=== PATIENT | female | born 1935 | race Caucasian/White ===

== ENCOUNTER 2017-05-14 11:14 | Inpatient (IN) | payer MEDICARE, OTHER ==
[~2017-05-14] VITALS: Ht 157.5 cm; Wt 54.4 kg
[~2017-05-14 11:14] MED LIST: ALPR0.5T6 PO; ASCO60LO PO; BIMA2.5D EACHEYE; GLUC1TAB71 PO; LEVOTHYROXINE; MONT10TA9 PO; MULT-245 PO; MV,1TABL3 PO; OMEG300C PO; PYRI100T PO; SELE200T10 PO; SULF1TAB24 PO; THEO400T2 PO; TRIA1CAP3 PO; VITA15DR PO; VITA1TAB39 PO
[2017-05-14] MEDS ORDERED: 0.9 % SODIUM CHLORIDE 10 ML DISP.SYRIN. IV ONE (12:00)
[2017-05-14] MEDS ORDERED: IPRATRPIUM/ALBUTEROL 0.5/2.5MG 3 ML NEBU. NEB ONE (12:20)
[2017-05-14] MEDS ORDERED: methylPREDNISolone SOD SUCC PF 125 MG/2 ML VIAL. IV ONE (12:20)
[2017-05-14 12:21] LABS: BASO # 0.1 x10^3/uL (0.0-0.2); BASO % 1 % (0-3); EOS # 0.1 x10^3/uL (0.0-0.7); EOS % 1 % (0-3); HEMATOCRIT 39.1 % (36.0-47.0); HEMOGLOBIN 13.1 g/dL (12.0-15.5); LYMPH % 7 % (24-48); MEAN CORPUSCULAR HEMOGLOBIN 30 pg (25-35); MEAN CORPUSCULAR HGB CONC 34 g/dL (31-37); MEAN CORPUSCULAR VOLUME 89 fL (79-100); MONO # 2.1 x10^3/uL (0.0-1.1); MONO % 15 % (0-9); NEUT # 10.8 x10^3uL (1.8-7.7); NEUT % 77 % (31-73); PLATELET COUNT 260 x10^3/uL (140-400); RED BLOOD COUNT 4.41 x10^6/uL (3.50-5.40); RED CELL DISTRIBUTION WIDTH 14.1 % (11.5-14.5)
--- NOTE | 2017-05-14 12:28 | RAD ---
CHEST PA LATERAL History: Shortness of breath, cough Comparison: July 19, 2005 Findings: 2 views of the chest are submitted. There is emphysema. There is hazy infiltrate at the right lung base probably in the right middle lobe and anterior right upper lobe. There may be minimal infiltrate at the left lung base. There is S-shaped scoliosis of the thoracolumbar spine. There is likely hiatal hernia. Heart size is similar. There are again small granulomas of the mid to superior right hemithorax. There is no significant dependent pleural fluid. Impression: 1. There is infiltrate at the right lung base, also questionably minimally of the left lung base for which radiographic follow-up after treatment advised. There is emphysema. Electronically signed by: Shaan Regalado MD (05/14/2017 12:24 PM) [id number]
--- NOTE | 2017-05-14 12:58 | PHYS DOC ---
Past History Past Medical History: Anxiety, Hypertension, Hypothyroid Past Surgical History: Cancer Surgery, Knee Replacement, Other Alcohol Use: None Drug Use: None Adult General Chief Complaint Chief Complaint: COUGH HPI HPI 81-year-old male patient with history of surgically treated lung cancer several years ago and previous history of smoking complaining of productive cough with clear sputum for the last 5 days with episodes of shortness of breath during cough. Patient complaining of fever up to 101 and generalized weakness. Patient states she has had dark yellow sputum since last night without hemoptysis. She complaining of nasal congestion and sore throat without vomiting, diarrhea, urinary symptoms, sick contact. Review of Systems Review of Systems Constitutional: Reports fever and chills] Eyes: Denies change in visual acuity, redness, or eye pain [] HENT: Reports nasal congestion or sore throat Respiratory: Reports cough and shortness of breath Cardiovascular: No additional information not addressed in HPI [] GI: Denies abdominal pain, nausea, vomiting, bloody stools or diarrhea [] : Denies dysuria or hematuria [] Musculoskeletal: Denies back pain or joint pain [] Integument: Denies rash or skin lesions [] Neurologic: Denies headache, focal weakness or sensory changes [] Endocrine: Denies polyuria or polydipsia [] All other systems were reviewed and found to be within normal limits, except as documented in this note. Current Medications Current Medications Current Medications Medications (Trade) Dose Ordered Sig/Marya Start Time Stop Time Status Last Admin Dose Admin Albuterol/ Ipratropium (Duoneb) 3 ml 1X ONCE 05/14/17 12:20 05/14/17 12:21 DC Levofloxacin/ Dextrose 150 ml @ 150 mls/hr 1X ONCE 05/14/17 12:45 05/14/17 13:44 Methylprednisolone Sodium Succinate (SOLU-Medrol 125MG VIAL) 125 mg 1X ONCE 05/14/17 12:20 05/14/17 12:21 DC 05/14/17 12:06 125 MG Sodium Chloride (Normal Saline Flush) 10 ml 1X ONCE 05/14/17 12:00 05/14/17 12:01 DC Vancomycin HCl 1.5 gm/Sodium Chloride 500 ml @ 250 mls/hr 1X ONCE 05/14/17 13:00 05/14/17 14:59 Allergies Allergies Allergies Coded Allergies Type Severity Reaction Last Updated Verified NSAIDS (Non-Steroidal Anti-Inflamma Allergy Severe 07/06/14 Yes Penicillins Allergy Severe 07/06/14 Yes cephalexin Allergy Severe 07/06/14 Yes duloxetine Allergy Severe 07/06/14 Yes sulindac Allergy Severe 07/06/14 Yes tramadol Allergy Severe 07/06/14 Yes acetaminophen Allergy Intermediate 07/06/14 Yes aspirin Allergy Intermediate 07/06/14 Yes ibuprofen Allergy Intermediate 07/06/14 Yes fentanyl Adverse Reaction Mild intoxication symptoms 07/06/14 Yes lidocaine Adverse Reaction Mild intoxication symptoms 07/06/14 Yes Uncoded Allergies Type Severity Reaction Last Updated Verified scorpion venom Allergy Severe anaphylaxis 07/06/14 Physical Exam Physical Exam Constitutional: Well developed, thin patient , mild distress, non-toxic appearance. [] HENT: Normocephalic, atraumatic, bilateral external ears normal, oropharynx moist, no oral exudates, nose normal. [] Eyes: PERRLA, EOMI, conjunctiva normal, no discharge. [] Neck: Normal range of motion, no tenderness, supple, no stridor. [] Cardiovascular:Heart rate regular rhythm, no murmur [] Lungs & Thorax: Decrease of air movement, rhonchi, rales of right lung[] Abdomen: Bowel sounds normal, soft, no tenderness, no masses, no pulsatile masses. [] Skin: Warm, dry, no erythema, no rash. [] Back: No tenderness, no CVA tenderness. [] Extremities: No tenderness, no cyanosis, no clubbing, ROM intact, no edema. [] Neurologic: Alert and oriented X 3, normal motor function, normal sensory function, no focal deficits noted. [] Psychologic: Affect normal, judgement normal, mood normal. [] Current Patient Data Vital Signs Vital Signs Date Time Temp Pulse Resp B/P (MAP) Pulse Ox O2 Delivery O2 Flow Rate FiO2 05/14/17 11:47 97.8 100 18 93 Room Air Lab Results Laboratory Tests Test 05/14/17 11:38 White Blood Count 14.0 x10^3/uL (4.0-11.0) H Red Blood Count 4.41 x10^6/uL (3.50-5.40) Hemoglobin 13.1 g/dL (12.0-15.5) Hematocrit 39.1 % (36.0-47.0) Mean Corpuscular Volume 89 fL (79-100) Mean Corpuscular Hemoglobin 30 pg (25-35) Mean Corpuscular Hemoglobin Concent 34 g/dL (31-37) Red Cell Distribution Width 14.1 % (11.5-14.5) Platelet Count 260 x10^3/uL (140-400) Neutrophils (%) (Auto) 77 % (31-73) H Lymphocytes (%) (Auto) 7 % (24-48) L Monocytes (%) (Auto) 15 % (0-9) H Eosinophils (%) (Auto) 1 % (0-3) Basophils (%) (Auto) 1 % (0-3) Neutrophils # (Auto) 10.8 x10^3uL (1.8-7.7) H Lymphocytes # (Auto) 1.0 x10^3/uL (1.0-4.8) Monocytes # (Auto) 2.1 x10^3/uL (0.0-1.1) H Eosinophils # (Auto) 0.1 x10^3/uL (0.0-0.7) Basophils # (Auto) 0.1 x10^3/uL (0.0-0.2) Lactic Acid Level 1.4 mmol/L (0.4-2.0) EKG EKG [] Radiology/Procedures Radiology/Procedures Chest x-ray showed right lower lobe infiltration[] Course & Med Decision Making Course & Med Decision Making Pertinent Labs and Imaging studies reviewed. (See chart for details) Evaluation of patient in ER showed 81-year-old female patient with history of lung cancer presented to ER with cough and yellow sputum and fever with O2 sat of 89% at room air. Patient treated with oxygen, Solu-Medrol, IV fluid, Dilaudid and felt better. Chest x-ray showed infiltration and white count was 14 ,000. Because of history of lung cancer and hypoxia and leukocytosis plan to admit patient with inpatient treatment with Levaquin and vancomycin. On-call hospitalist Dr. Rachel accepted admission at 1256. Stephie Disclaimer Elsaon Disclaimer This electronic medical record was generated, in whole or in part, using a voice recognition dictation system. Departure Departure: Impression: Primary Impression: CAP (community acquired pneumonia) Additional Impressions: Leucocytosis Dyspnea History of lung cancer Hypokalemia Elevated brain natriuretic peptide (BNP) level Disposition: 09 ADMITTED INPATIENT (At 1258) Admitting Physician: Naida Rachel Condition: IMPROVED Referrals: SUE HILTON I (PCP) Problem Qualifiers WILTON PÉREZ MD May 14, 2017 12:58
[2017-05-14] MEDS ORDERED: VANCOMYCIN 1.5 GM in IV NORMAL SALINE 500ML 500 ML IV ONE (13:00)
[2017-05-14] MEDS: IPRATRPIUM/ALBUTEROL 0.5/2.5MG 3 ML NEBU. NEB SCH ×3 (13:15→21:41)
[2017-05-14] MEDS: IV NORMAL SALINE 1,000ML 1,000 ML IV SCH ×2 (13:15→23:32)
[2017-05-14 13:32] LABS: ALBUMIN 2.9 g/dL (3.4-5.0); ALBUMIN/GLOBULIN RATIO 0.6 (1.0-1.7); CALCIUM 10.2 mg/dL (8.5-10.1); CREATININE 1.1 mg/dL (0.6-1.0); GFR 47.8; POTASSIUM 3.3 mmol/L (3.5-5.1); TOTAL BILIRUBIN 0.7 mg/dL (0.2-1.0)
[2017-05-14 13:34] LABS: INFLUENZA A PATIENT NEGATIVE (NEGATIVE); INFLUENZA B PATIENT NEGATIVE (NEGATIVE)
[2017-05-14] MEDS ORDERED: diphenhydrAMINE 50 MG/ML VIAL IVP ONE (14:45)
[2017-05-14 16:29] VITALS: BP 144/74
[2017-05-14] MEDS: methylPREDNISolone SOD SUCC PF 125 MG/2 ML VIAL. IV SCH ×2 (16:32→21:30)
[2017-05-14] MEDS ORDERED: LEVO100T PO (17:29)
[2017-05-14 18:12] VITALS: BP 144/74
--- NOTE | 2017-05-14 18:18 | HP ---
ADMIT DATE: 05/14/2017 HISTORY OF PRESENT ILLNESS: The patient is an 81-year-old female patient who apparently has been complaining of recurrent bouts of cough, shortness of breath and scanty whitish sputum that turned into yellowish sputum and she also spiked her temperature, developed generalized weakness, and she came to the Emergency Room complaining also of nasal congestion and sore throat without vomiting or diarrhea. She was evaluated extensively and was found to have mild leukocytosis, and chest x-ray showed that she has infiltrate at the right lung base and also questionably minimal of the left lung base, for which a radiographic followup is recommended. She also has emphysema and was admitted to be treated with antibiotic in the form of vancomycin as well as levofloxacin. She has extensive list of allergies. PAST MEDICAL HISTORY: Significant for lung cancer, hypertension, hypothyroidism, osteoarthritis, osteoporosis, and COPD. PAST SURGICAL HISTORY: Significant for right lower lobectomy, left total knee arthroplasty, bilateral cataract extraction, tonsillectomy, and appendectomy. ALLERGIES: She is allergic to NONSTEROIDAL ANTI-INFLAMMATORY MEDICATIONS, PENICILLIN, ACETAMINOPHEN, ASPIRIN, CEPHALEXIN, DULOXETINE, FENTANYL, IBUPROFEN, LIDOCAINE, ____. MEDICATIONS: She is currently on following medications: She is on alprazolam 0.5 mg daily, ascorbic acid 60 mg, lozenges for vitamin C once a day, Lumigan 1 drop to both eyes at bedtime, glucosamine Boswellia Cesar for Osteo Bi-Flex 1 tablet once a day, montelukast 10 mg at bedtime, multivitamin 1 tablet once a day, omega-3 fatty acids 1 tablet once a day, pyridoxine 100 mg once a day, selenomethionine 200 mg once a day, sulfamethoxazole trimethoprim 1 tablet p.o. b.i.d. She is on theophylline anhydrous 200 mg once a day, triamterene/hydrochlorothiazide 37.5/25 one tablet once a day, vitamin B complex one tablet once a day, vitamin E 15 units once a day; levothyroxine, dose of which is unclear. REVIEW OF SYSTEMS: As per history of present illness. FAMILY HISTORY: All her 3 male brothers are . Her 3 sisters are still alive. One of them has dementia. The other 2 are healthy. SOCIAL HISTORY: She is , has 2 living sons, and 1 daughter who at age of 18. She is an ex-smoker, quit 30 years ago. Does not drink alcohol. She lives in a [facility] [place] with 9 dogs. PHYSICAL EXAMINATION: GENERAL: When I examined her, she was resting slightly propped up in bed, in no apparent respiratory distress, pale, but no jaundice, cyanosis, or thyromegaly. No jugular venous distention. No limb edema. VITAL SIGNS: Her heart rate was 100, blood pressure was 160/92, temperature was 97.8, respiratory rate was 18 and oxygen saturation was 93% on room air. HEAD, EYES, EARS, NOSE AND THROAT: Showed normocephalic, atraumatic. NECK: Supple. HEART: Showed normal first and second heart sounds with no gallop, rub, or murmur. CHEST: Shows central trachea, equal bilateral expansion, air entry, vesicular breath sounds with crepitation mostly in the right side posteriorly, very few scattered rhonchi. ABDOMEN: Scaphoid, soft, nontender. NEUROLOGIC: She was awake, alert, responding appropriately. Cranial nerves intact. EXTREMITIES: She moves extremities without difficulty. She walks with a walker or cane. She has multiple wounds in both lower extremities that are chronic and followed closely by the [facility]. LABORATORY DATA: Her lab work this morning showed a white cell count of 14,000, hemoglobin 13, hematocrit 39, MCV 89 and platelet count of 260,000. Her chemistry showed a serum sodium 141, potassium 3.3, chloride 102, bicarbonate 30, anion gap of 9, BUN 19, creatinine 1.1, estimated GFR was 47 mL per minute. Her glucose 125. Lactic acid 1.4, calcium was 10.2. Total bilirubin, AST, ALT, alkaline phosphatase were normal. Total protein was 8, albumin 2.9. Her chest x-ray showed that she has emphysema as well as infiltrate at the right lung base and also ____ in the left lung base. ASSESSMENT AND PLAN: In summary, this is an 81-year-old female patient who was admitted with 1. Community-acquired pneumonia. 2. Chronic obstructive pulmonary disease. 3. Hypertension. 4. Hypothyroidism. 5. Osteoarthritis/osteoporosis and multiple wounds in both legs. We will continue with all her medications except the antibiotic in the form of sulfamethoxazole, trimethoprim. We will repeat all her lab works tomorrow and decide on further management accordingly. We will continue obviously with IV ceftriaxone and Zithromax. COLLIN CASTILLO MD DR: RHONDA/bobby JOB#: [id number] / [id number]
[2017-05-14 19:00] VITALS: BP 117/80
[2017-05-14] MEDS: ALPRAZolam 0.5 MG TABLET PO SCH (21:31)
[2017-05-14 22:03] VITALS: BP 132/82
[2017-05-15 05:04] VITALS: BP 124/64
[2017-05-15] MEDS: methylPREDNISolone SOD SUCC PF 125 MG/2 ML VIAL. IV SCH ×2 (05:24→13:50)
[2017-05-15] MEDS: IPRATRPIUM/ALBUTEROL 0.5/2.5MG 3 ML NEBU. NEB SCH ×4 (05:47→21:45)
[2017-05-15 06:46] LABS: BASO % 0 % (0-3); EOS % 0 % (0-3); HEMATOCRIT 34.2 % (36.0-47.0); HEMOGLOBIN 11.5 g/dL (12.0-15.5); LYMPH # 0.5 x10^3/uL (1.0-4.8); LYMPH % 6 % (24-48); MEAN CORPUSCULAR HEMOGLOBIN 30 pg (25-35); MEAN CORPUSCULAR HGB CONC 34 g/dL (31-37); MEAN CORPUSCULAR VOLUME 89 fL (79-100); MONO # 0.4 x10^3/uL (0.0-1.1); MONO % 4 % (0-9); NEUT # 7.4 x10^3uL (1.8-7.7); NEUT % 89 % (31-73); PLATELET COUNT 226 x10^3/uL (140-400); RED BLOOD COUNT 3.86 x10^6/uL (3.50-5.40); RED CELL DISTRIBUTION WIDTH 14.2 % (11.5-14.5); WHITE BLOOD COUNT 8.3 x10^3/uL (4.0-11.0)
[2017-05-15 07:09] LABS: ALBUMIN 2.5 g/dL (3.4-5.0); ALBUMIN/GLOBULIN RATIO 0.5 (1.0-1.7); CALCIUM 10.1 mg/dL (8.5-10.1); CREATININE 1.2 mg/dL (0.6-1.0); GFR 43.2; POTASSIUM 3.2 mmol/L (3.5-5.1); TOTAL BILIRUBIN 0.3 mg/dL (0.2-1.0); TOTAL PROTEIN 7.2 g/dL (6.4-8.2)
[2017-05-15] MEDS: LEVOTHYROXINE 100 MCG TABLET PO SCH (09:28)
[2017-05-15] MEDS: POTASSIUM BICARB 25 MEQ EFFERVESCENT TAB. PO SCH (09:28)
[2017-05-15 10:56] VITALS: BP 139/83
[2017-05-15 14:28] VITALS: BP 130/75
[2017-05-15] MEDS: VANCOMYCIN PER PHARMACY MC PRN ×2 (16:01→16:05)
[2017-05-15] MEDS: VANCOMYCIN 1 GM in IV NORMAL SALINE 250ML 250 ML IV SCH (16:35)
--- NOTE | 2017-05-15 17:41 | EKG ---
[address] [address] Test Date: 2017-05-15 Test Time: 17:32:55 Pat Name: STEVO ACE Department: Room: 105 A Gender: F Mult Au Matic Operator: : [id number] Requested By: COLLIN CASTILLO Order Number: [id number] Reading MD: Measurements Intervals Henderson Rate: 114 P: -142 WA: 80 QRS: 5 QRSD: 90 T: 31 QT: 304 QTc: 422 Interpretive Statements SUPRAVENTRICULAR RHYTHM QRS(T) CONTOUR ABNORMALITY CONSIDER ANTEROSEPTAL MYOCARDIAL DAMAGE CONSISTENT WITH INFERIOR INFARCT PROBABLY OLD ABNORMAL ECG RI6.01 No previous ECG available for comparison
[2017-05-15 19:12] VITALS: BP 142/82
[2017-05-15] MEDS: ALPRAZolam 0.5 MG TABLET PO SCH (19:29)
[2017-05-15 23:39] VITALS: BP 149/63
[2017-05-16 05:29] VITALS: BP 145/66
[2017-05-16] MEDS: IPRATRPIUM/ALBUTEROL 0.5/2.5MG 3 ML NEBU. NEB SCH ×3 (05:58→15:19)
[2017-05-16 07:14] LABS: CALCIUM 10.1 mg/dL (8.5-10.1); CREATININE 1.3 mg/dL (0.6-1.0); GFR 39.4; POTASSIUM 3.7 mmol/L (3.5-5.1)
[2017-05-16 07:35] LABS: HEMATOCRIT 37.4 % (36.0-47.0); HEMOGLOBIN 12.3 g/dL (12.0-15.5); RED BLOOD COUNT 4.24 x10^6/uL (3.50-5.40); RED CELL DISTRIBUTION WIDTH 14.4 % (11.5-14.5); WHITE BLOOD COUNT 17.2 x10^3/uL (4.0-11.0)
[2017-05-16] MEDS: LEVOTHYROXINE 100 MCG TABLET PO SCH (08:49)
[2017-05-16] MEDS: POTASSIUM BICARB 25 MEQ EFFERVESCENT TAB. PO SCH (08:49)
[2017-05-16] MEDS ORDERED: methylPREDNISolone SOD SUCC PF 40 MG/ML VIAL. IV SCH (09:00)
[2017-05-16 10:33] VITALS: BP 133/80
[2017-05-16] MEDS ORDERED: LEVO500T59 PO (13:08)
[2017-05-16 14:28] VITALS: BP 144/83
[2017-05-16] MEDS: VANCOMYCIN 1 GM in IV NORMAL SALINE 250ML 250 ML IV SCH (15:00)
[2017-05-16] MEDS ORDERED: LACTOBACILLUS RHAMNOSUS GG 1 CAPSULE. PO SCH (21:00)
--- NOTE | 2017-05-17 23:23 | PN ---
DATE: 05/15/2017 SUBJECTIVE: The patient is sitting comfortably in her chair in no apparent distress. She did have some cough with scanty sputum. She denied any chest pain or shortness of breath and said that she is generally feeling better. PHYSICAL EXAMINATION: GENERAL: When I examined her, she looked well and was clearly in no apparent respiratory distress, pale, not jaundiced or cyanosed. No thyromegaly, jugular venous distension or limb edema. VITAL SIGNS: Her heart rate was 107, blood pressure was 130/75, temperature was 97.8, respiratory rate 20, and oxygen saturation was 96%. HEAD, EYES, EARS, NOSE AND THROAT: Normocephalic, atraumatic. NECK: Supple. HEART: Showed normal first and second heart sounds. No gallop, rub or murmur. CHEST: Clear to auscultation. No crepitation or rhonchi. ABDOMEN: Distended, soft, nontender. NEUROLOGIC: She is awake, alert, responding appropriately. Cranial nerves are intact. She moves extremities without difficulty. She ambulates without assistance or assistive device. Her intake was 1170, no output was recorded. LABORATORY DATA: This morning showed a serum sodium 143, potassium 3.2, chloride 105, bicarbonate 29, anion gap of 9, BUN 22, creatinine 1.2, estimated GFR was 43 mL per minute, her glucose was 168, and calcium was 10.1. Total bilirubin, AST, ALT, alkaline phosphatase were normal. Total protein was 7.2, albumin 2.5. Her blood culture is so far negative. DIAGNOSTIC DATA: Her chest x-ray showed that she has infiltrate in the right lower lobe and questionable left lower lobe infiltrate also. ASSESSMENT: 1. Community-acquired pneumonia. 2. Chronic obstructive pulmonary disease exacerbation. 3. Hypertension. 4. Hypothyroidism. 5. Osteoarthritis. 6. Osteoporosis. 7. Multiple wounds in both legs. PLAN: To continue with the IV antibiotic. Repeat all her labs tomorrow, and if she is doing well, we can discharge her tomorrow to continue treatment as an outpatient. COLLIN CASTILLO MD DR: RHONDA/bobby JOB#: [id number] / [id number]
== END 2017-05-16 16:45 | disposition home health service (06) | DRG 190 ==
LOC: ER 11:14 → 1 SOUTH 13:00
PROVIDERS: ADMIT Internal Medicine; ATTEND Internal Medicine
DX: J44.0 Chronic obstructive pulmonary disease with (acute) lower respiratory infection (principal); J18.9 Pneumonia, unspecified organism; L97.829 Non-pressure chronic ulcer of other part of left lower leg with unspecified severity; L97.819 Non-pressure chronic ulcer of other part of right lower leg with unspecified severity; J44.1 Chronic obstructive pulmonary disease with (acute) exacerbation; E03.9 Hypothyroidism, unspecified; E87.6 Hypokalemia; I10 Essential (primary) hypertension; M19.90 Unspecified osteoarthritis, unspecified site; M81.0 Age-related osteoporosis without current pathological fracture; Z96.652 Presence of left artificial knee joint; F41.9 Anxiety disorder, unspecified; Z85.118 Personal history of other malignant neoplasm of bronchus and lung; Z87.891 Personal history of nicotine dependence; Z98.41 Cataract extraction status, right eye; Z98.42 Cataract extraction status, left eye; Z88.8 Allergy status to other drugs, medicaments and biological substances; Z88.6 Allergy status to analgesic agent; Z88.1 Allergy status to other antibiotic agents; Z91.048 Other nonmedicinal substance allergy status; Z90.49 Acquired absence of other specified parts of digestive tract
CPT/HCPCS: 36415; 71046; 80048; 80053; 83605; 83880; 84443; 84484; 85025; 85027; 87040; 87804; 93005; 94640; 96365; 96368; 96375; J1200; J1956; J2920; J2930; J3370; J7040; J7050; J7620; 99285-25; J7030

== ENCOUNTER 2018-03-27 05:44 | Emergency (ER) | payer MEDICARE, OTHER ==
[~2018-03-27] VITALS: Ht 154.9 cm; Wt 54.4 kg
[~2018-03-27 05:44] MED LIST changes: +LEVO100T PO; +LEVO500T59 PO
[2018-03-27 06:05] VITALS: BP 169/81
--- NOTE | 2018-03-27 06:26 | PHYS DOC ---
Past History Past Medical History: Anxiety, Cancer, Hypertension, Hypothyroid Past Surgical History: Appendectomy, Cancer Surgery, Knee Replacement, Tonsillectomy, Other Alcohol Use: None Drug Use: None Adult General Chief Complaint Chief Complaint: MECHANICAL FALL [facility] HPI Patient is an 82-year-old female who presents via EMS with report of fall. Patient states some time during the night she had tripped and fallen and believes that she may have been unconscious. Patient complains of head pain as well as left-sided neck pain, left hip and knee pain and left shoulder pain. Patient rates the pain as being moderate. She states the pain in her hip and knee are worsened with motion. Patient reportedly had arrived to emergency room with c-collar in place. C-collar was cleared by Dr. Morales upon arrival. At the time of my arrival, Dr. Morales was stapling a 2 cm scalp laceration. Patient awake, alert and appropriate upon arrival. Review of Systems Review of Systems Constitutional: Denies fever or chills [] Respiratory: Denies cough or shortness of breath [] Cardiovascular: No additional information not addressed in HPI [] GI: Denies abdominal pain, nausea, vomiting or diarrhea [] Musculoskeletal: Complains of left-sided neck pain, left shoulder, left hip and knee pain [] Integument: Positive scalp laceration[] Neurologic: Complains of mild headache [] All other systems were reviewed and found to be within normal limits, except as documented in this note. Allergies Allergies Allergies Coded Allergies Type Severity Reaction Last Updated Verified NSAIDS (Non-Steroidal Anti-Inflamma Allergy Severe 07/06/14 Yes Penicillins Allergy Severe 07/06/14 Yes cephalexin Allergy Severe 07/06/14 Yes duloxetine Allergy Severe 07/06/14 Yes sulindac Allergy Severe 07/06/14 Yes tramadol Allergy Severe 07/06/14 Yes acetaminophen Allergy Intermediate 07/06/14 Yes aspirin Allergy Intermediate 07/06/14 Yes ibuprofen Allergy Intermediate 07/06/14 Yes fentanyl Adverse Reaction Mild intoxication symptoms 07/06/14 Yes lidocaine Adverse Reaction Mild intoxication symptoms 07/06/14 Yes Uncoded Allergies Type Severity Reaction Last Updated Verified scorpion venom Allergy Severe anaphylaxis 07/06/14 Physical Exam Physical Exam Constitutional: Well developed, well nourished, no acute distress, non-toxic appearance. [] HENT: Normocephalic, 2 cm laceration to scalp with no injury to galea, bilateral external ears normal, oropharynx moist, no oral exudates, nose normal. [] Eyes: PERRLA, EOMI, conjunctiva normal, no discharge. [] Neck: Normal range of motion, no tenderness, supple, per Dr. Morales [] Cardiovascular:Heart rate regular rhythm [] Lungs & Thorax: Bilateral breath sounds clear to auscultation [] Abdomen: Bowel sounds normal, soft, no tenderness. [] Skin: Warm, dry. [] Extremities: Right lower extremity demonstrates a fairly large approximately 4 x 7 cm stage III ulcer with mild surrounding erythema. Legs demonstrate 2-3+ pitting edema. ROM of left hip decreased due to pain. No evident shortening or external rotation noted on exam. [] Neurologic: Alert and oriented appropriate for age, normal motor function, normal sensory function, no focal deficits noted. [] Current Patient Data Vital Signs Vital Signs Date Time Temp Pulse Resp B/P (MAP) Pulse Ox O2 Delivery O2 Flow Rate FiO2 03/27/18 06:05 96.5 84 18 95 Room Air EKG EKG [] Radiology/Procedures Radiology/Procedures [] Impressions: IMPRESSION: There is an impacted subcapital left femoral neck fracture. Vascular calcifications are seen. Lower lumbar spine degenerative changes are seen. Decreased bone mineral density. Course & Med Decision Making Course & Med Decision Making Pertinent Labs and Imaging studies reviewed. (See chart for details) Laceration Repair by Dr. Morales: Anesthesia: 1% lidocaine with epinephrine locally Location: Scalp Tendon/Joint/Nerves: No injury Foreign body: None detected after copious irrigation and exploration Technique: Eugene Complexity: No subcutaneous sutures/mucosal repair/edge excision Post Closure Length: 2 cm Patient's bleeding was easily controlled in the department and there is no indication of anemia. No evidence of compartment syndrome, neurologic injury, vascular injury, open joint, tendon laceration, or foreign body. Patient is appropriate for outpatient follow up. 48 hour wound check. Scar minimization instructions given. Patient has requested transfer to [facility] and on-call hospitalist has accepted in transfer. Stephie Disclaimer Stephie Disclaimer This electronic medical record was generated, in whole or in part, using a voice recognition dictation system. Departure Departure: Impression: Primary Impression: Closed left hip fracture Additional Impression: Scalp laceration Disposition: XFER SHT-TRM HOSP Condition: GOOD Referrals: LIDA,SUE I (PCP) Problem Qualifiers Primary Impression: Closed left hip fracture Encounter type: initial encounter Qualified Codes: S72.002A - Fracture of unspecified part of neck of left femur, initial encounter for closed fracture Additional Impression: Scalp laceration Encounter type: initial encounter Qualified Codes: S01.01XA - Laceration without foreign body of scalp, initial encounter NITIN SEAY Jr. DO Mar 27, 2018 06:26
[2018-03-27 07:51] LABS: BASO % 0 % (0-3); EOS % 0 % (0-3); HEMATOCRIT 37.8 % (36.0-47.0); HEMOGLOBIN 12.5 g/dL (12.0-15.5); LYMPH # 0.6 x10^3/uL (1.0-4.8); LYMPH % 6 % (24-48); MEAN CORPUSCULAR HEMOGLOBIN 29 pg (25-35); MEAN CORPUSCULAR HGB CONC 33 g/dL (31-37); MEAN CORPUSCULAR VOLUME 88 fL (79-100); MONO # 0.7 x10^3/uL (0.0-1.1); MONO % 7 % (0-9); NEUT # 8.6 x10^3uL (1.8-7.7); NEUT % 86 % (31-73); PLATELET COUNT 317 x10^3/uL (140-400); RED BLOOD COUNT 4.31 x10^6/uL (3.50-5.40); RED CELL DISTRIBUTION WIDTH 14.4 % (11.5-14.5)
--- NOTE | 2018-03-27 07:53 | RAD ---
EXAM: CT HEAD WITHOUT IV CONTRAST CLINICAL HISTORY: fell, headache/dizziness with neck pain, hit back of head COMPARISON: None. TECHNIQUE: Routine CT of the head without contrast. Soft tissues and bone windows were reviewed. PQRS compliance statement - One or more of the following individualized dose reduction techniques were utilized for this study: 1. Automated exposure control 2. Adjustment of the mA and/or kV according to patient size 3. Use of iterative reconstruction technique FINDINGS: There is no evidence of hemorrhage, mass or extra-axial fluid collection. Velasco-white differentiation is maintained with no evidence of edema. There is patchy and confluent regions of hypodensity in the periventricular and subcortical white matter of the cerebral hemispheres as well as the deep white matter and porfirio. There is no mass effect or shift of the intracranial structures. The ventricles, basilar cisterns and cortical sulci are normal in size and configuration for the patients stated age. The cerebellum and brainstem are unremarkable. The calvarium demonstrates no evidence of fracture or focal lesion. There is normal aeration of the visualized paranasal sinuses and mastoid air cells. The visualized portions of the orbits are normal. IMPRESSION: 1. No evidence for acute intracranial process. 2. Patchy and confluent regions of white matter hypoattenuation may be seen with chronic small vessel disease. EXAM: CT CERVICAL SPINE WITHOUT IV CONTRAST CLINICAL HISTORY: fell, headache/dizziness with neck pain, hit back of head COMPARISON: None available. TECHNIQUE: Helical CT of the cervical spine was performed. Axial, coronal and sagittal reformatted images were also performed. PQRS compliance statement - One or more of the following individualized dose reduction techniques were utilized for this study: 1. Automated exposure control 2. Adjustment of the mA and/or kV according to patient size 3. Use of iterative reconstruction technique FINDINGS: There is preservation of height of the vertebral bodies with normal bone density. No spondylolisthesis. Levoscoliosis of the thoracic spine with some degree of compensation of the cervical spine.. The height of the intervertebral discs is maintained. A few small 3-4 mm biapical lung nodules are seen. Bilateral emphysematous changes are noted. C2-C3: Small central disc protrusion causes mild deformity of the ventral thecal sac without neural foraminal narrowing. C3-C4: Small central disc protrusion causes mild deformity of the ventral thecal sac without neural foraminal narrowing. C4-C5: Mild bilateral uncovertebral hypertrophy results in mild bilateral neural foraminal narrowing. No significant central canal stenosis. C5-C6: Posterior disc osteophyte complex with bilateral uncovertebral hypertrophy results in mild central canal stenosis and mild bilateral neural foraminal narrowing. C6-C7: No significant central canal stenosis although mild uncovertebral hypertrophy results in mild bilateral neural foraminal narrowing. C7-T1: No significant central canal stenosis although mild uncovertebral hypertrophy results in mild bilateral neural foraminal narrowing. IMPRESSION: 1. No evidence for acute fracture or subluxation of the cervical spine 2. Multilevel degenerative changes as above 3. Several small 3-4 mm lung nodules are seen bilaterally. These can be followed up with CT chest. Electronically signed by: Lexx Jiménez MD (03/27/2018 7:50 AM) [facility]
[2018-03-27 07:59] LABS: BACTERIA,URINE FEW /HPF (0-FEW); BILIRUBIN,URINE NEG (NEG); CLARITY,URINE CLEAR; COLOR,URINE YELLOW; GLUCOSE,URINE NEG (NEG); HYALINE CASTS, URINE OCC /HPF; NITRITE,URINE NEG (NEG); RBC,URINE 0 /HPF (0-2); UROBILINOGEN,URINE 0.2 mg/dL (0.2 mg/dL); WBC,URINE RARE /HPF (0-4)
[2018-03-27 08:07] LABS: ALBUMIN 3.3 g/dL (3.4-5.0); ALBUMIN/GLOBULIN RATIO 0.8 (1.0-1.7); CALCIUM 9.3 mg/dL (8.5-10.1); CREATININE 1.3 mg/dL (0.6-1.0); GFR 39.3; POTASSIUM 3.7 mmol/L (3.5-5.1); TOTAL BILIRUBIN 0.3 mg/dL (0.2-1.0); TOTAL PROTEIN 7.7 g/dL (6.4-8.2)
[2018-03-27] MEDS ORDERED: HYDROmorphone PF 1 MG/ML DISP.SYRIN IV ONE (08:30)
[2018-03-27] MEDS ORDERED: ONDANSETRON PF 4 MG/2 ML VIAL. IV ONE (08:30)
--- NOTE | 2018-03-27 08:43 | RAD ---
EXAM: AP pelvis, AP and frog-leg lateral views of the left hip DATE: 03/27/2018 6:46 AM INDICATION: fell, left hip and pelvic pain COMPARISON: No Prior FINDINGS/ IMPRESSION: There is an impacted subcapital left femoral neck fracture. Vascular calcifications are seen. Lower lumbar spine degenerative changes are seen. Decreased bone mineral density. Electronically signed by: Lexx Jiménez MD (03/27/2018 8:40 AM) [facility]
--- NOTE | 2018-03-27 08:44 | RAD ---
EXAM: 3 views left shoulder DATE: 03/27/2018 6:57 AM INDICATION: fell, left shoulder pain COMPARISON: No Prior FINDINGS/ IMPRESSION: No evidence of acute fracture or dislocation. Decreased bone mineral density. Old posterior lateral left sixth and seventh rib fractures are seen. Calcified left hilar lymph nodes are seen. Electronically signed by: Lexx Jiménez MD (03/27/2018 8:41 AM) [facility]
--- NOTE | 2018-03-27 08:45 | RAD ---
EXAM: AP, lateral and oblique views of the right knee DATE: 03/27/2018 6:51 AM INDICATION: fell, left knee pain, hx of left knee surg COMPARISON: 09/22/2014 FINDINGS/ IMPRESSION: Changes of right total knee arthroplasty, in stable alignment without definite hardware complication. Components are well seated without significant periprosthetic lucency. No evidence of acute fracture or dislocation. Heterotopic ossification overlying the medial left tibial plateau. No knee joint effusion. Atherosclerotic vascular calcifications are seen. Electronically signed by: Lexx Jiménez MD (03/27/2018 8:42 AM) [facility]
--- NOTE | 2018-03-27 08:54 | RAD ---
EXAM: CT pelvis DATE: 03/27/2018 8:16 AM COMPARISON: No prior INDICATION: fell, pelvic pain TECHNIQUE: Non-union protocol completed through the affected site without IV contrast. 2-D reformatted sagittal and coronal images were created at the CT console workstation. FINDINGS: Marked osteopenia. There is an impacted subcapital left femoral neck fracture in varus deformity. Dense sclerosis of the femoral heads bilaterally possibly likely from osteonecrosis. Degenerative changes of the lumbar spine are partially profiled. Amorphus calcification of the posterior aspect of the left proximal tibial shaft, possibly calcific tendinitis. Evaluation of the visceral contents limited given bone algorithm reconstructions. Dense atherosclerotic calcifications of aorta and iliacs are seen. Colonic diverticula are noted. Calcified uterine fibroids are seen. IMPRESSION: 1. Impacted subcapital left femoral neck fracture in mild varus attenuation. 2. Decreased bone mineral density. 3. Lower lumbar spine degenerative changes are seen. Electronically signed by: Lexx Jiménez MD (03/27/2018 8:51 AM) [facility]
--- NOTE | 2018-03-27 09:24 | EKG ---
[address] [address] Test Date: 2018-03-27 Test Time: 09:21:11 Pat Name: STEVO ACE Department: Room: Gender: F [employer]: : [id number] Requested By: NITIN SEAY Order Number: [id number] Reading MD: Jesus Alberto Dacosta MD Measurements Intervals [place] Rate: 75 P: 42 CA: 216 QRS: 62 QRSD: 90 T: 72 QT: 390 QTc: 438 Interpretive Statements SINUS RHYTHM 1ST DEGREE AVB Electronically Signed On 03-29-2018 14:21:36 [employer]NAGER IN [employer]INING by Jesus Alberto Dacosta MD
== END 2018-03-27 10:35 | disposition short-term general hospital (02) ==
LOC: ER 05:44
DX: S72.012A Unspecified intracapsular fracture of left femur, initial encounter for closed fracture (principal); S01.01XA Laceration without foreign body of scalp, initial encounter; M54.2 Cervicalgia; M25.512 Pain in left shoulder; M25.562 Pain in left knee; F41.9 Anxiety disorder, unspecified; I10 Essential (primary) hypertension; E03.9 Hypothyroidism, unspecified; Z88.6 Allergy status to analgesic agent; Z88.0 Allergy status to penicillin; Z88.4 Allergy status to anesthetic agent; Z88.1 Allergy status to other antibiotic agents; Z88.8 Allergy status to other drugs, medicaments and biological substances; W01.0XXA Fall on same level from slipping, tripping and stumbling without subsequent striking against object, initial encounter; Y93.89 Activity, other specified; Y92.89 Other specified places as the place of occurrence of the external cause; Y99.8 Other external cause status
CPT/HCPCS: 12001; 36415; 70450; 72125; 72192; 73030; 73502; 73562; 80053; 81001; 85025; 85610; 93005; 96374; 96375; 99285; J1170; J2405